=== PATIENT | female | born 1935 | race Caucasian/White ===

== ENCOUNTER 2022-01-05 08:40 | Emergency (ER) | payer MEDICARE, BC ==
[2022-01-05] MEDS: Famotidine 20 MG/2 ML SDV IVPUSH ONE (09:40)
[2022-01-05] MEDS: Sodium Chloride 0.9% 1,000 ML IV SCH (09:40)
[2022-01-05] MEDS: Ondansetron 4 MG/2 ML SDV IVPUSH ONE (09:40)
[2022-01-05] MEDS: Sodium Chloride 0.9% 10 ML Syringe FLUSH PRN (09:41)
== END 2022-01-05 13:05 | disposition home or self-care (01) ==
LOC: JD.ED 08:40
DX: K80.70 Calculus of gallbladder and bile duct without cholecystitis without obstruction (principal); N39.0 Urinary tract infection, site not specified; Z88.0 Allergy status to penicillin
CPT/HCPCS: 36415; 71045; 71045-26; 76705; 76705-26; 80053; 81001; 83690; 84484; 85025; 93005; 93010; 96374; 96375; 99284-25; 99285; J2405; J3490; J7030

== ENCOUNTER 2023-10-05 09:14 | Day surgery (SDC) | payer MEDICARE, BC ==
[~2023-10-05 09:14] MED LIST: Lactated Ringers 1,000 ML IV SCH; Sodium Chloride 0.9% 10 ML Syringe FLUSH PRN; Sodium Chloride 0.9% 10 ML Syringe FLUSH SCH
[2023-10-05] MEDS ORDERED: Propofol 200 MG/20 ML SDV ONE (10:27)
[2023-10-05] MEDS ORDERED: Lidocaine 2% 5 ML SDV ONE (10:29)
== END 2023-10-05 12:01 | disposition home or self-care (01) ==
LOC: JD.SDS 09:14
PROVIDERS: ATTEND Surgery
DX: K29.50 Unspecified chronic gastritis without bleeding (principal); I13.0 Hypertensive heart and chronic kidney disease with heart failure and stage 1 through stage 4 chronic kidney disease, or unspecified chronic kidney disease; N18.30 Chronic kidney disease, stage 3 unspecified; I50.30 Unspecified diastolic (congestive) heart failure; J47.9 Bronchiectasis, uncomplicated; J45.20 Mild intermittent asthma, uncomplicated; K21.9 Gastro-esophageal reflux disease without esophagitis; R63.4 Abnormal weight loss; Z68.28 Body mass index [BMI] 28.0-28.9, adult; E78.00 Pure hypercholesterolemia, unspecified; Z79.899 Other long term (current) drug therapy
CPT/HCPCS: 43239; J2704; J7120; 00731; 88305; 88342; 99100; J3490